=== PATIENT | male | born 1990 | race African-American/Black ===

== ENCOUNTER 2016-06-12 18:27 | Emergency (ER) | payer MEDICAID ==
[~2016-06-12 18:27] MED LIST: NO HOME MEDICATION XX
== END 2016-06-12 18:50 ==
LOC: EDMED 18:27
PROC: 0HQGXZZ Repair Left Hand Skin, External Approach (ICD-10-PCS; principal; 2016-06-12)
DX: S61.211A Laceration without foreign body of left index finger without damage to nail, initial encounter (principal); Z23 Encounter for immunization; W26.0XXA Contact with knife, initial encounter; Y92.009 Unspecified place in unspecified non-institutional (private) residence as the place of occurrence of the external cause